=== PATIENT | female | born 1955 | race Caucasian/White ===

== ENCOUNTER → 2017-08-13 | Outpatient (REF) | payer MEDICARE ==
[~2017-08-13] MED LIST: ACID1TAB2 PO; ALBU2.5V36 INH; BENZ100C4 PO; BUDE10.2 INH; DABI150C3 PO; FOLI-68 PO; GUAI-645 PO; IBUP200C71 PO; IPRA3AMP21 NEB; LOR5/325 PO; METH4TAB66 PO; NIC10R INH; PRAM0.1221 PO; PRAM0.1225 PO; PRED20TA6 PO; SUCR1TAB51 PO; THIA100T58 PO; TRAM-420 PO; [UNRECOGNIZED DRUG - REMARK]; duoneb INH
[2017-08-13 11:21] LABS: PLATELET COUNT, AUTOMATED 263 K/uL (150-450)
== END ==
LOC: ZZSENDIN 11:03
PROVIDERS: ATTEND Family Medicine
DX: R63.4 Abnormal weight loss (principal)
CPT/HCPCS: 85025; 85651

== ENCOUNTER 2017-09-12 00:24 | Outpatient (RCR) | payer MEDICARE ==
--- NOTE | 2017-09-13 08:59 | RADIOLOGY IMAGING REPORT ---
FACILITY: [facility] - [place] PATIENT NAME: Mary Perez : 1955 MR: [id number] V: [id number] EXAM DATE: ORDERING PHYSICIAN: OLRI GARCIA TECHNOLOGIST: Location: [facility] [place] Patient: Mary Perez : 1955 Visit/Account:[id number] Date of Sevice: 09/12/2017 THYROID IMAGE/UPTAKE MULTIPLE HISTORY: Thyrotoxicosis TECHNIQUE: 386 microcuries I-123 were administered orally. Radioiodine uptake values were calculated at 24 hours following tracer administration. Gamma camera images were obtained of the neck in variou s orientations. COMPARISON: None FINDINGS: Thyroid radioiodine uptake at 24 hours is 19.2% (normal range 15-40%) Thyroid radioiodine uptake at six hours is 8.9% (normal range 5-15%) Size and shape: Normal. Homogeneity: Normal. Nodules: None evident. IMPRESSION: Unremarkable nuclear medicine thyroid uptake and scan 24 hour thyroid uptake is 19.2% Six hour thyroid uptake is 8.9% Report Dictated By: Lucille Partida MD at 09/13/2017 8:51 AM Report E-Signed By: Lucille Partida MD at 09/13/2017 8:54 AM WSN:[email or web address]
== END 2017-09-12 18:00 | disposition home or self-care (01) ==
LOC: NUC 00:24 → EDSTATUS 13:58 → NUC 18:00
PROVIDERS: ATTEND Family Medicine
DX: E05.90 Thyrotoxicosis, unspecified without thyrotoxic crisis or storm (principal)
CPT/HCPCS: 78014; A9516

== ENCOUNTER → 2018-02-05 | Outpatient (CLI) | payer MEDICARE ==
[~2018-02-05] MED LIST changes: +IBUP-136 PO; -IBUP200C71 PO; +IPRA3AMP10 NEB; -IPRA3AMP21 NEB; +THIA100T20 PO; -THIA100T58 PO
== END ==
LOC: LAB 09:01
PROVIDERS: ATTEND Family Medicine
DX: R19.7 Diarrhea, unspecified (principal)
CPT/HCPCS: 83993; 87177; 87324; 87449

== ENCOUNTER → 2018-03-14 | Outpatient (CLI) | payer MEDICARE ==
--- NOTE | 2018-03-14 11:17 | RADIOLOGY IMAGING REPORT ---
FACILITY: [facility] - [place] PATIENT NAME: Mary Perez : 1955 MR: [id number] V: [id number] EXAM DATE: ORDERING PHYSICIAN: LORI GARCIA TECHNOLOGIST: Location: [facility] [place] Patient: Mary Perez : 1955 Visit/Account:[id number] Date of Sevice: 03/14/2018 Exam type: CHEST PA AND LAT History: Weight loss, COPD, smoker Comparison: August 08, 2016 and August 02, 2016 Findings: There is hyperexpansion of the lung sun. There is no evidence of acute-appearing pulmonary consol idation pleural effusions or overt pulmonary edema. Cardiac silhouette is normal in size. The centr al pulmonary arteries appear somewhat prominent although similar to the prior study. There are spond ylotic changes of the thoracic spine IMPRESSION: 1. There is hyperexpansion of the lung sun Central pulmonary arteries appear somewhat prominent although similar to the prior study. This can b e seen with pulmonary arterial hypertension Report Dictated By: Lucille Partida MD at 03/14/2018 11:07 AM Report E-Signed By: Lucille Partida MD at 03/14/2018 11:14 AM WSN:[email or web address]
== END ==
LOC: RAD 10:08
PROVIDERS: ATTEND Family Medicine
DX: R63.4 Abnormal weight loss (principal); I27.0 Primary pulmonary hypertension
CPT/HCPCS: 71046

== ENCOUNTER 2018-03-23 16:29 | Emergency (ER) | payer MEDICARE ==
[~2018-03-23 16:29] MED LIST changes: -OMEP40CA48 PO; -SUCR1TAB85 PO
[2018-03-23] MEDS ORDERED: NS(*) 0.9% 1000 ML BAG 1,000 ML IV ONE (16:46)
[2018-03-23 16:55] LABS: PLATELET COUNT, AUTOMATED 241 K/uL (150-450)
--- NOTE | 2018-03-23 17:10 | ER Report ---
History and Physical Time Seen By MD: 16:38 Hx. of Stated Complaint: PT WAS AT THE BAR DRINKING. REPORTS GOING TO THE BATHROOM, WHEN SHE CAME OUT SHE STARTED SEEING BLACK SPOTS, COULDNT SEE HER CHAIR, AND STARTED HAVING SEVERE ABDOMINAL CRAMPS HPI/ROS CHIEF COMPLAINT: Abdominal pain, cramping, near syncopal episode HISTORY OF PRESENT ILLNESS: 62-year-old female patient presents to emergency room with complaint of abdominal pain, cramping and near syncopal episode. Patient states that she was at the bar drinking this afternoon. She states that she's had 4 beers today. She states that she is able to tolerate up to 12 beers at a time. She states that she got to the bathroom, as whenever she has anything to drink, whether it is alcohol or water, that she will have diarrhea. She states that she was returning from the bathroom and she felt like she was having spots in her vision. She states that when she got to her barstool she was able to see 3 of them. She states that she felt like she is going to pass out and so she laid down. She states that she was having problems so EMS was contacted. She states she has had a significant amount of weight loss in the past year. She states that is not been intentional. She states she does have a history of COPD. Patient states she does smoke a half to a full pack of cigarettes a day. REVIEW OF SYSTEMS: Respiratory: No cough, no dyspnea. Cardiovascular: No chest pain, no palpitations. Gastrointestinal: As noted above Musculoskeletal: No back pain. Allergies: Coded Allergies: codeine (Verified Allergy, Mild, Itchy, 03/28/17) niacin (Verified Allergy, Mild, rash, itching, 03/28/17) tetracycline (Verified Allergy, Mild, yeast infection, 03/28/17) Home Meds Active Scripts Sucralfate (CARAFATE) 1 Gm Tablet, 1 GM PO QID, #60 TAB Take before meals and at bedtime. Crush the tablet and mix with water before taking. Prov:FREDI GARRETT 03/23/18 Omeprazole (OMEPRAZOLE) 40 Mg Capsule.dr, 40 MG PO QDAY, #30 CAP Prov:FREDI GARRETT 03/23/18 Sucralfate (SUCRALFATE) 1 Gm Tablet, 1 GM PO ACHS1 for 7 Days, TAB Prov:LUISA BAKER MD 08/08/16 Ipratropium/Albuterol Sulfate (IPRAT-ALBUT 0.5-3(2.5) MG/3 ML) 3 Ml Ampul.neb, 3 ML NEB QIDR for 30 Days, VIAL Prov:LUISA BAKER MD 08/08/16 Reported Medications Nicotine (NICOTROL) 10 Mg/Inh Ctr, 10 MG INH PRN PRN for NICOTINE REPLACEMENT 08/11/16 Budesonide/Formoterol Fumarate (SYMBICORT 160-4.5 MCG INHALER) 10.2 Gm Inh, 6 GM INH BID, INH 08/11/16 Pramipexole Di-Hcl (MIRAPEX) 0.125 Mg Tablet, 0.125 MG PO QHS 08/11/16 Acidoph/L.bulg/Bif.b/S.thermop (BACID CAPLET) 1 Each Tablet, 1 EACH PO BIDBS 08/11/16 Budesonide/Formoterol Fumarate (SYMBICORT 160-4.5 MCG INHALER) 10.2 Gm Inh, 10.2 GM INH unknown, INH 10/21/14 Past Medical/Surgical History Patient has a past medical history of sleep apnea, asthma, COPD, reflux, restless leg, arthritis, jaw fracture, clavicle fracture, frequent strep throat, hemophilia, alcohol use, suicide attempt. Patient has a surgical history of jaw surgery, fatty tumor removed. Patient has a family medical history of cancer. Reviewed Nurses Notes: Yes Hx Smoking: Yes Smoking Status: Current: Every Day Smoker Exposure to Second Hand Smoke?: No Hx Substance Use Disorder: No Hx Alcohol Use: Yes Constitutional Vital Sign - Last 24 Hours 03/23/18 03/23/18 03/23/18 03/23/18 16:31 17:10 18:00 18:30 Temp 97.3 Pulse 66 62 Resp 16 B/P (MAP) 131/66 66/54 (58) 100/68 (79) Pulse Ox 91 99 Physical Exam General Appearance: The patient is alert, has no immediate need for airway protection and no current signs of toxicity. Respiratory: Chest is non tender, lungs are clear to auscultation. Cardiac: regular rate and rhythm Gastrointestinal: Abdomen is soft and tender in bilateral lower quadrants, no masses, bowel sounds normal. Musculoskeletal: Neck: Neck is supple and non tender. Extremities have full range of motion and are non tender. Skin: No rashes or lesions. DIFFERENTIAL DIAGNOSIS: After history and physical exam differential diagnosis was considered for dehydration, diarrhea, colon cancer, COPD, alcohol intoxication. Medical Decision Making Data Points Result Diagram: 03/23/18 1625 03/23/18 1625 Laboratory Hematology Test 03/23/18 16:05 03/23/18 16:25 03/23/18 17:05 Serum Alcohol 224 mg/dl Red Blood Count 4.31 M/uL (4.17-5.56) Mean Corpuscular Volume 95.2 fL (80.0-96.0) Mean Corpuscular Hemoglobin 31.8 pg (26.0-33.0) Mean Corpuscular Hemoglobin Concent 33.4 g/dL (32.0-36.0) Red Cell Distribution Width 13.0 % (11.5-14.5) Mean Platelet Volume 7.7 fL (7.2-11.1) Neutrophils (%) (Auto) 51.2 % (39.4-72.5) Lymphocytes (%) (Auto) 37.9 % (17.6-49.6) Monocytes (%) (Auto) 7.8 % (4.1-12.4) Eosinophils (%) (Auto) 1.4 % (0.4-6.7) Basophils (%) (Auto) 1.7 % (0.3-1.4) Nucleated RBC Relative Count (auto) 0.0 /100WBC Neutrophils # (Auto) 4.1 K/uL (2.0-7.4) Lymphocytes # (Auto) 3.0 K/uL (1.3-3.6) Monocytes # (Auto) 0.6 K/uL (0.3-1.0) Eosinophils # (Auto) 0.1 K/uL (0.0-0.5) Basophils # (Auto) 0.1 K/uL (0.0-0.1) Nucleated RBC Absolute Count (auto) 0.00 K/uL Sodium Level 134 mmol/L (137-145) Potassium Level 4.1 mmol/L (3.5-5.0) Chloride Level 97 mmol/L (98-107) Carbon Dioxide Level 25 mmol/L (22-31) Blood Urea Nitrogen 11 mg/dl (7-18) Creatinine 0.70 mg/dl (0.52-1.04) Glomerular Filtration Rate Calc > 60.0 Random Glucose 108 mg/dl (75-110) Calcium Level 9.0 mg/dl (8.4-10.2) Total Bilirubin 0.2 mg/dl (0.2-1.3) Aspartate Amino Transf (AST/SGOT) 33 U/L (0-35) Alanine Aminotransferase (ALT/SGPT) 22 U/L (0-56) Alkaline Phosphatase 62 U/L (0-126) Troponin I < 0.012 ng/ml Total Protein 7.1 g/dl (6.3-8.2) Albumin 4.2 g/dl (3.5-5.0) Amylase Level 56 U/L (0-110) Lipase 129 U/L (23-300) Urine Color Colorless Urine Clarity Clear Urine pH 6.0 pH (4.8-9.5) Urine Specific [place] 1.002 Urine Protein Negative mg/dL (NEGATIVE) Urine Glucose (UA) Negative mg/dL (NEGATIVE) Urine Ketones Negative mg/dL (NEGATIVE) Urine Blood Negative (NEGATIVE) Urine Nitrite Negative (NEGATIVE) Urine Bilirubin Negative (NEGATIVE) Urine Urobilinogen Negative mg/dL (0.2-1.9) Urine Leukocyte Esterase Negative (NEGATIVE) Urine RBC None /HPF (0-2/HPF) Urine WBC <1 /HPF (0-5/HPF) Urine Squamous Epithelial Cells None /LPF (</=FEW) Urine Bacteria Negative /HPF (NONE-FEW) Urine Mucus None /HPF (NONE-FEW) Stool Occult Blood (IFOB) Positive (NEGATIVE) Stool Leukocytes, Qualitative Negative Chemistry Test 03/23/18 16:05 03/23/18 16:25 03/23/18 17:05 Serum Alcohol 224 mg/dl White Blood Count 8.0 k/uL (4.5-11.0) Red Blood Count 4.31 M/uL (4.17-5.56) Hemoglobin 13.7 g/dL (12.0-16.0) Hematocrit 41.0 % (34.0-47.0) Mean Corpuscular Volume 95.2 fL (80.0-96.0) Mean Corpuscular Hemoglobin 31.8 pg (26.0-33.0) Mean Corpuscular Hemoglobin Concent 33.4 g/dL (32.0-36.0) Red Cell Distribution Width 13.0 % (11.5-14.5) Platelet Count 241 K/uL (150-450) Mean Platelet Volume 7.7 fL (7.2-11.1) Neutrophils (%) (Auto) 51.2 % (39.4-72.5) Lymphocytes (%) (Auto) 37.9 % (17.6-49.6) Monocytes (%) (Auto) 7.8 % (4.1-12.4) Eosinophils (%) (Auto) 1.4 % (0.4-6.7) Basophils (%) (Auto) 1.7 % (0.3-1.4) Nucleated RBC Relative Count (auto) 0.0 /100WBC Neutrophils # (Auto) 4.1 K/uL (2.0-7.4) Lymphocytes # (Auto) 3.0 K/uL (1.3-3.6) Monocytes # (Auto) 0.6 K/uL (0.3-1.0) Eosinophils # (Auto) 0.1 K/uL (0.0-0.5) Basophils # (Auto) 0.1 K/uL (0.0-0.1) Nucleated RBC Absolute Count (auto) 0.00 K/uL Glomerular Filtration Rate Calc > 60.0 Calcium Level 9.0 mg/dl (8.4-10.2) Total Bilirubin 0.2 mg/dl (0.2-1.3) Aspartate Amino Transf (AST/SGOT) 33 U/L (0-35) Alanine Aminotransferase (ALT/SGPT) 22 U/L (0-56) Alkaline Phosphatase 62 U/L (0-126) Troponin I < 0.012 ng/ml Total Protein 7.1 g/dl (6.3-8.2) Albumin 4.2 g/dl (3.5-5.0) Amylase Level 56 U/L (0-110) Lipase 129 U/L (23-300) Urine Color Colorless Urine Clarity Clear Urine pH 6.0 pH (4.8-9.5) Urine Specific [place] 1.002 Urine Protein Negative mg/dL (NEGATIVE) Urine Glucose (UA) Negative mg/dL (NEGATIVE) Urine Ketones Negative mg/dL (NEGATIVE) Urine Blood Negative (NEGATIVE) Urine Nitrite Negative (NEGATIVE) Urine Bilirubin Negative (NEGATIVE) Urine Urobilinogen Negative mg/dL (0.2-1.9) Urine Leukocyte Esterase Negative (NEGATIVE) Urine RBC None /HPF (0-2/HPF) Urine WBC <1 /HPF (0-5/HPF) Urine Squamous Epithelial Cells None /LPF (</=FEW) Urine Bacteria Negative /HPF (NONE-FEW) Urine Mucus None /HPF (NONE-FEW) Stool Occult Blood (IFOB) Positive (NEGATIVE) Stool Leukocytes, Qualitative Negative Toxicology Test 03/23/18 16:05 Serum Alcohol 224 mg/dl Urinalysis Test 03/23/18 17:05 Urine Color Colorless Urine Clarity Clear Urine pH 6.0 pH (4.8-9.5) Urine Specific [place] 1.002 Urine Protein Negative mg/dL (NEGATIVE) Urine Glucose (UA) Negative mg/dL (NEGATIVE) Urine Ketones Negative mg/dL (NEGATIVE) Urine Blood Negative (NEGATIVE) Urine Nitrite Negative (NEGATIVE) Urine Bilirubin Negative (NEGATIVE) Urine Urobilinogen Negative mg/dL (0.2-1.9) Urine Leukocyte Esterase Negative (NEGATIVE) Urine RBC None /HPF (0-2/HPF) Urine WBC <1 /HPF (0-5/HPF) Urine Squamous Epithelial Cells None /LPF (</=FEW) Urine Bacteria Negative /HPF (NONE-FEW) Urine Mucus None /HPF (NONE-FEW) Microbiology Microbiology Date/Time Source Procedure Growth Status 03/23/18 17:05 Stool Gram Stain - Final Resulted 03/23/18 17:05 Stool Stool Culture Pending Resulted EKG/Imaging EKG Interpretation 12 lead EKG: Rhythm: normal sinus rhythm with a ventricular rate of 70 bpm [place]: normal QRS: normal ST segments: normal Imaging COMPUTED TOMOGRAPHY OF THE Abdomen and Pelvis with CONTRAST INDICATION: Abdominal pain. TECHNIQUE: Contiguous axial 3.[address] images were obtained through the abdomen and pelvis after 75 mL Isovue-370. Coronal and sagittal reformatted images were submitted. COMPARISON: None relevant.. FINDINGS: Lung bases: Moderate centrilobular emphysema. Coronary atherosclerosis is not well-imaged. There is also calcification in the region of the aortic valve. Liver and hepatic vasculature: No focal lesion. Well-opacified hepatic and portal veins. No ascites. Gallbladder and bile ducts: Normal Spleen: Normal Pancreas: Normal Adrenals: Normal Kidneys, ureters and bladder: Symmetric enhancement. No hydronephrosis or obstruction. Normal-appearing bladder. Retroperitoneum and aorta: Moderate aortic atherosclerosis. No aneurysm. GI tract, mesentery and peritoneum: Normal appendix. No bowel obstruction. No free fluid or free air. Several small bowel loops are fluid-filled, but not frankly distended. There are no findings of diverticulitis. Wall thickening of the rectosigmoid colon is possible, but the colon is incompletely distended. Uterus and adnexa: Unremarkable uterus. Bones and soft tissues: No acute osseous abnormality. Diffusely decreased bone density in the lumbar spine. IMPRESSION: 1. No definite evidence of acute intra-abdominal abnormality. 2. Several small bowel loops are fluid-filled, but none are frankly distended. There is no obstruction. The finding may be incidental or related to enteritis. 3. Equivocal wall thickening involving the sigmoid colon with the appearance favored to be the result of decompression/incomplete distention versus colitis. One of the following dose optimization techniques was utilized in the performance of this exam: Automated exposure control; adjustment of the mA and/or kV according to the patient's size; or use of an iterative reconstruction technique. Specific details can be referenced in the facility's radiology CT exam operational policy. Report Dictated By: Peter Ivy MD at 03/23/2018 6:01 PM Report E-Signed By: Peter Ivy MD at 03/23/2018 6:08 PM INDICATION: syncopal episode. DATE: 03/23/2018 5:59 PM. TECHNIQUE: CHEST PA AND LAT COMPARISON: Radiographs March 14, 2018. FINDINGS: Heart size is normal. No effusion, consolidation, or pneumothorax. The lungs are hyperinflated. The AP diameter of the chest is increased. The interstitium is diffusely prominent. Bilateral nipple shadows are noted. Bone density appears diffusely decreased in the thoracic spine. IMPRESSION: Hyperinflation, hyperlucency, and AP chest diameter suggests background emphysema. Prominence of the interstitium is probably related to bronchial wall thickening. No focal pneumonia. Report Dictated By: Peter Ivy MD at 03/23/2018 5:59 PM Report E-Signed By: Peter Ivy MD at 03/23/2018 6:00 PM ED Course/Re-evaluation ED Course Patient was admitted exam room, history and physical were obtained. Differential diagnoses were considered. On examination lungs are clear, heart is regular, abdomen soft nontender. Patient states she did have some pain in the right lower quadrant. A CBC, CMP, urinalysis, EKG, troponin, chest x-ray, CT scan of the abdomen and pelvis were done. The lab results were unremarkable. Chest x-ray showed emphysema. The CT scan of abdomen and pelvis did show some dilated small bowels consistent with an enteritis as well as some thickening of the colon coronado consistent with colitis. With patient likely has some viral infection of the intestines. I believe that she had a spasm of the intestines after she got to the bathroom which caused a vasovagal response. Thus far she had her near syncopal episode. Patient was positive for blood in her stool, I could be related to the infection or could be related to a bleed which is causing the increased diarrhea. We will go ahead and start her on omeprazole 40 mg daily as well as Carafate and have her follow-up with Dr. George. I discussed this with the patient who verbalized understanding and agreement with plan. Decision to Disposition Date: Mar 23, 2018 Decision to Disposition Time: 18:16 Depart Departure Latest Vital Signs Vital Signs Date Time Temp Pulse Resp B/P (MAP) Pulse Ox O2 Delivery O2 Flow Rate FiO2 03/23/18 18:30 62 99 03/23/18 18:00 100/68 (79) 03/23/18 16:31 97.3 16 Impression: Primary Impression: Enteritis Additional Impression: Gastrointestinal bleed Condition: Improved Disposition: HOME OR SELF-CARE Referrals: LORI GARCIA MD (PCP) LORI GEORGE MD New Scripts Sucralfate (CARAFATE) 1 Gm Tablet 1 GM PO QID, #60 TAB Take before meals and at bedtime. Crush the tablet and mix with water before taking. Prov: FREDI GARRETT 03/23/18 Omeprazole (OMEPRAZOLE) 40 Mg Capsule. 40 MG PO QDAY, #30 CAP Prov: FREDI GARRETT 03/23/18 Patient Instructions: Enteritis (ED) Additional Instructions: Increase fluid intake. Clear liquid diet for the next 24-48 hours. After that you may advance diet as tolerated starting with complex carbohydrates; rice, bread or pasta. Follow up with your primary care provider in the next week. Return to the ER if condition worsens. Follow up with Dr. George for a colonoscopy, to find out why you have blood in your stool. Problem Qualifiers Additional Impression: Gastrointestinal bleed GI bleed type/associated pathology: unspecified gastrointestinal hemorrhage type Qualified Codes: K92.2 - Gastrointestinal hemorrhage, unspecified FREDI GARRETT PROCESS IMPROVEMENT ENGINEER Mar 23, 2018 17:10
[2018-03-23] MEDS ORDERED: IOPAMIDOL 76% 100 ML INFUS BTL 100 ML ONE (17:12)
--- NOTE | 2018-03-23 17:31 | EKG ---
FACILITY: [facility] PATIENT NAME: ESSIE LICONA : [id number] MR: [id number] V: [id number] EXAM DATE: ORDERING PHYSICIAN: FREDI GARRETT TECHNOLOGIST: HILARIO Test Reason : IMPAIRED VISION Blood Pressure : / mmHG Vent. Rate : 070 BPM Atrial Rate : 070 BPM P-R Int : 134 ms QRS Dur : 082 ms QT Int : 428 ms P-R-T Axes : 085 081 074 degrees QTc Int : 462 ms Normal sinus rhythm Normal ECG When compared with ECG of 08-AUG-2016 05:54, Borderline criteria for Anterior infarct are no longer present Confirmed by CONRAD TENA ([id number]) on 03/23/2018 10:08:58 PM Referred By: FREDI Confirmed By:CONRAD TENA
[2018-03-23 18:00] VITALS: BP 100/68
--- NOTE | 2018-03-23 18:03 | RADIOLOGY IMAGING REPORT ---
FACILITY: [facility] - [place] PATIENT NAME: Mary Perez : 1955 MR: [id number] V: [id number] EXAM DATE: ORDERING PHYSICIAN: FREDI GARRETT TECHNOLOGIST: Location: [facility] [place] Patient: Mary Perez : 1955 Visit/Account:[id number] Date of Sevice: 03/23/2018 INDICATION: syncopal episode. DATE: 03/23/2018 5:59 PM. TECHNIQUE: CHEST PA AND LAT COMPARISON: Radiographs March 14, 2018. FINDINGS: Heart size is normal. No effusion, consolidation, or pneumothorax. The lungs are hyperinf lated. The AP diameter of the chest is increased. The interstitium is diffusely prominent. Bilater al nipple shadows are noted. Bone density appears diffusely decreased in the thoracic spine. IMPRESSION: Hyperinflation, hyperlucency, and AP chest diameter suggests background emphysema. Prominence of the interstitium is probably related to bronchial wall thickening. No focal pneumonia. Report Dictated By: Peter Ivy MD at 03/23/2018 5:59 PM Report E-Signed By: Peter Ivy MD at 03/23/2018 6:00 PM WSN:[email or web address]
--- NOTE | 2018-03-23 18:13 | RADIOLOGY IMAGING REPORT ---
FACILITY: [facility] PATIENT NAME: Mary Perez : 1955 MR: [id number] V: [id number] EXAM DATE: ORDERING PHYSICIAN: FREDI GARRETT TECHNOLOGIST: Location: [facility] Patient: Mary Perez : 1955 Visit/Account:[id number] Date of Sevice: 03/23/2018 COMPUTED TOMOGRAPHY OF THE Abdomen and Pelvis with CONTRAST INDICATION: Abdominal pain. TECHNIQUE: Contiguous axial 3.[address] images were obtained through the abdomen and pelvis after 75 m L Isovue-370. Coronal and sagittal reformatted images were submitted. COMPARISON: None relevant.. FINDINGS: Lung bases: Moderate centrilobular emphysema. Coronary atherosclerosis is not well-imaged. There is also calcification in the region of the aortic valve. Liver and hepatic vasculature: No focal lesion. Well-opacified hepatic and portal veins. No ascite s. Gallbladder and bile ducts: Normal Spleen: Normal Pancreas: Normal Adrenals: Normal Kidneys, ureters and bladder: Symmetric enhancement. No hydronephrosis or obstruction. Normal-appe aring bladder. Retroperitoneum and aorta: Moderate aortic atherosclerosis. No aneurysm. GI tract, mesentery and peritoneum: Normal appendix. No bowel obstruction. No free fluid or free ai r. Several small bowel loops are fluid-filled, but not frankly distended. There are no findings of diverticulitis. Wall thickening of the rectosigmoid colon is possible, but the colon is incompletely distended. Uterus and adnexa: Unremarkable uterus. Bones and soft tissues: No acute osseous abnormality. Diffusely decreased bone density in the lumbar spine. IMPRESSION: 1. No definite evidence of acute intra-abdominal abnormality. 2. Several small bowel loops are fluid-filled, but none are frankly distended. There is no obstruct ion. The finding may be incidental or related to enteritis. 3. Equivocal wall thickening involving the sigmoid colon with the appearance favored to be the resul t of decompression/incomplete distention versus colitis. One of the following dose optimization techniques was utilized in the performance of this exam: Autom ated exposure control; adjustment of the mA and/or kV according to the patient's size; or use of an i terative reconstruction technique. Specific details can be referenced in the facility's radiology C T exam operational policy. Report Dictated By: Peter Ivy MD at 03/23/2018 6:01 PM Report E-Signed By: Peter Ivy MD at 03/23/2018 6:08 PM WSN:[email or web address]
[2018-03-23] MEDS ORDERED: OMEP40CA48 PO (18:19)
[2018-03-23] MEDS ORDERED: SUCR1TAB85 PO (18:19)
[2018-03-23] MEDS ORDERED: SUCRALFATE 1 GM TAB PO ONE (18:20)
[2018-03-23] MEDS ORDERED: PANTOPRAZOLE SOD 40 MG TABEC PO ONE (18:20)
== END 2018-03-23 18:39 | disposition home or self-care (01) ==
LOC: ER 16:38
DX: K52.9 Noninfective gastroenteritis and colitis, unspecified (principal); K92.2 Gastrointestinal hemorrhage, unspecified; J43.9 Emphysema, unspecified; F17.210 Nicotine dependence, cigarettes, uncomplicated
CPT/HCPCS: 71046; 74177; 81001; 82150; 82274; 83630; 83690; 84484; 85025; 87045; 87177; 87205; 93005; 96360; 96361; 99285; A9270; G0480; J7030; Q9967; 80320; 82040; 82247; 82310; 82374; 82435; 82565; 82947; 84075; 84132; 84155; 84295; 84450; 84460; 84520

== ENCOUNTER → 2018-03-23 | Outpatient (CLI) | payer MEDICARE ==
[~2018-03-23] MED LIST changes: +OMEP40CA48 PO; +SUCR1TAB85 PO
== END ==
LOC: AMB 16:08
PROVIDERS: ATTEND Nurse Practitioner
DX: R42 Dizziness and giddiness (principal); R10.84 Generalized abdominal pain; R19.7 Diarrhea, unspecified
CPT/HCPCS: A0425; A0427

== ENCOUNTER 2018-05-20 00:53 | Day surgery (SDC) | payer MEDICARE ==
[~2018-05-20] VITALS: Ht 170.2 cm; Wt 54.9 kg
[~2018-05-20 00:53] MED LIST changes: +DICY20TA70 PO; +LIDOCAINE/SOD BICARB 8.4% SYR ID ONE; +NORMOSOL R SOLN(*) 1000 ML BAG 1,000 ML IV PRN; +OMEP40CA48 PO; +OXYGENHOME INH; +SUCR1TAB85 PO
[2018-05-20 07:51] VITALS: BP 127/81
[2018-05-20] MEDS ORDERED: LIDOCAINE/SOD BICARB 8.4% SYR ID ONE (08:10)
[2018-05-20] MEDS ORDERED: NORMOSOL R SOLN(*) 1000 ML BAG 1,000 ML IV PRN (08:10)
[2018-05-20] MEDS ORDERED: KETAMINE HCL 500 MG/10 ML VIAL ONE (09:32)
[2018-05-20 09:50] VITALS: BP 114/63
--- NOTE | 2018-05-20 09:50 | NUR ---
5222 SBAR REPORT WAS RECEIVED FROM DR. MULLER AND TIFFANIE RN. PATIENT IS DROWSY BUT AWAKE. SHE IS ON 3.5 LITERS OXYMASK. PATIENT HAS EXPIRATORY WHEEZES AND WAS ENCOURAGE TO COUGH AND DEEP BREATHE. SHE HAS A PRODUCTIVE COUGH. BOWEL SOUNDS ARE HYPERACTIVE. SHE STATES SHE SHE 3/10 ABDOMINAL PAIN. IV IS INFUSING. SEE ADMISSION ASSESSMENT. 1794 PATIENT WAS MOVED TO A SEMI FOWLERS POSITION
[2018-05-20 10:00] VITALS: BP 115/77
--- NOTE | 2018-05-20 10:02 | Short(Outpt) Discharge Summary ---
Discharge Summary Reason for Hosp/Final Diag: (1) Gastrointestinal bleed Status: Acute Hospital Course & Plan: 62 yo f presented for egd/colonoscopy. wt loss, diarrhea. she tolerated the procedure well and there were no complications. path pending. she will be discharged home when criteria met. Discharge Instructions Home Meds Active Scripts Ipratropium/Albuterol Sulfate (IPRAT-ALBUT 0.5-3(2.5) MG/3 ML) 3 Ml Ampul.neb, 3 ML NEB QIDR for 30 Days, VIAL Prov:LUISA BAKER MD 08/08/16 Reported Medications Oxygen (OXYGEN) Inha, 3.5 L INH Q24H, L 05/06/18 Dicyclomine Hcl (DICYCLOMINE HCL) 20 Mg Tablet, 20 MG PO TID 04/11/18 Pramipexole Di-Hcl (MIRAPEX) 0.125 Mg Tablet, 0.125 MG PO QHS 08/11/16 Budesonide/Formoterol Fumarate (SYMBICORT 160-4.5 MCG INHALER) 10.2 Gm Inh, 10.2 GM INH BID, INH 10/21/14 Diet: Regular Activity: As Tolerated Special Instructions: will call you in 7-10 days with biopsy results. ANA LOPEZ May 20, 2018 10:02
[2018-05-20 10:19] VITALS: BP 128/84
[2018-05-20 10:21] VITALS: BP 125/86
--- NOTE | 2018-05-20 10:45 | NUR ---
1000 PATIENT BEGAN DRINKING WATER AND EATING JELLO. SHE IS TOLERATING THIS WELL 1010 PATIENT BEGAN DRINKING APPLE JUICE 1019 BEGAN DOING ORTHOSTATICS WITH PATIENT. DENIES ANY DIZZINESS OR LIGHTHEADEDNESS 1021 PATIENT BEGAN STANDING AND WAS STABLE ON HER FEET 1023 IV WAS SALINE LOCKED 1024 PATIENT BEGAN GETTING DRESSED 1035 WENT OVER DC INSTRUCTIONS WITH PATIENT AND FRIEND. THEY VERBALIZED UNDERSTANDING 1036 PATIENT USED THE BATHROOM 1040 IV WAS DC'D WITH CATH INTACT 1045 PATIENT WAS TAKEN OUT VIA WHEELCHAIR. LUNGS ARE DIMINISHED THROUGHOUT. EXPIRATORY WHEEZES ARE NO LONGER AUDIBLE. PATIENT CONTINUES TO COUGH AND DEEP BREATHE. SHE HAS A PRODUCTIVE COUGH. BOWEL SOUNDS ARE HYPERACTIVE. SHE STATES HER PAIN IS 0.5/10 WITH SOME ABDOMINAL GAS PAIN. SHE REMAINS ON 3.5 LITERS PORTABLE O2 ON DISCHARGE. SEE DISCHARGE ASSESSMENT.
== END 2018-05-20 10:45 | disposition home or self-care (01) ==
LOC: OR 00:53
PROVIDERS: ATTEND Surgery
DX: K44.9 Diaphragmatic hernia without obstruction or gangrene (principal); I85.00 Esophageal varices without bleeding; K29.70 Gastritis, unspecified, without bleeding; D12.0 Benign neoplasm of cecum; D12.4 Benign neoplasm of descending colon; D12.3 Benign neoplasm of transverse colon; K57.30 Diverticulosis of large intestine without perforation or abscess without bleeding; J44.9 Chronic obstructive pulmonary disease, unspecified; K21.9 Gastro-esophageal reflux disease without esophagitis
CPT/HCPCS: 00813; 43239; 45385; 87077; 88305; 88344; J3490

== ENCOUNTER 2018-05-25 19:51 | Emergency (ER) | payer MEDICARE ==
[2018-05-25] MEDS ORDERED: THIAMINE HCL(*) 200 MG/2 ML IN 100 MG, FOLIC ACID(*) 50 MG/10 ML INJ 1 MG, MULTIVITAMIN... IV ONE (19:52)
--- NOTE | 2018-05-25 20:02 | ER Report ---
History and Physical Time Seen By MD: 19:52 HPI/ROS CHIEF COMPLAINT: Lower abdominal cramps, alcohol ingestion HISTORY OF PRESENT ILLNESS: Exceeds 2-year-old female proximally 5 days out from a colonoscopy/EGD. Patient went out to the bar this evening at 5 PM and had several alcoholic beverages. She began to develop severe stomach cramping. And called 911. She's brought in by EMS complaining of lower abdominal pain. She has slurred speech consistent with alcohol intoxication. She admits 6-7 beers were consumed. She notes no diarrhea, nausea or vomiting. Patient was undergoing evaluation for chronic diarrhea and a 40 pound weight loss. REVIEW OF SYSTEMS: Respiratory: No cough, no dyspnea. Cardiovascular: No chest pain, no palpitations. Gastrointestinal: No vomiting, no abdominal pain. Musculoskeletal: No back pain. Allergies: Coded Allergies: codeine (Verified Allergy, Mild, Itchy, 05/25/18) niacin (Verified Allergy, Mild, rash, itching, 05/25/18) tetracycline (Verified Allergy, Mild, yeast infection, 05/25/18) Home Meds Active Scripts Dicyclomine Hcl (DICYCLOMINE HCL) 20 Mg Tablet, 20 MG PO QID PRN for abdominal cramps, #30 Prov:ADRIEN DAVID DO 05/25/18 Ipratropium/Albuterol Sulfate (IPRAT-ALBUT 0.5-3(2.5) MG/3 ML) 3 Ml Ampul.neb, 3 ML NEB QIDR for 30 Days, VIAL Prov:LUISA BAKER MD 08/08/16 Reported Medications Oxygen (OXYGEN) Inha, 3.5 L INH Q24H, L 05/06/18 Dicyclomine Hcl (DICYCLOMINE HCL) 20 Mg Tablet, 20 MG PO TID 04/11/18 Pramipexole Di-Hcl (MIRAPEX) 0.125 Mg Tablet, 0.125 MG PO QHS 08/11/16 Budesonide/Formoterol Fumarate (SYMBICORT 160-4.5 MCG INHALER) 10.2 Gm Inh, 10.2 GM INH BID, INH 10/21/14 Past Medical/Surgical History Past Medical History Respiratory: Reports hx of: COPD (Wears 3LO2) sleep apnea Gastrointestinal: Reports hx of: GERD other GI history (stomach ulcers) Psychiatric: Reports hx of: suicide attempt(s) (15 Apr 2017) Past Surgical History Gastrointestinal: Reports hx of: other GI surgery (colonoscopy 2014) Gynecologic: Reports hx of: tubal ligation Reviewed Nurses Notes: Yes Old Medical Records Reviewed: Yes Hx Smoking: Yes (1 PPDX40+ YEARS ) Smoking Status: Current: Every Day Smoker Exposure to Second Hand Smoke?: No Hx Substance Use Disorder: No Hx Alcohol Use: Yes Constitutional Vital Sign - Last 24 Hours 05/25/18 05/25/18 05/25/18 05/25/18 19:51 19:52 19:57 20:01 Temp 97.8 Pulse ??? 75 Resp 18 B/P (MAP) 133/129 133/129 (130) 102/85 (91) Pulse Ox 94 O2 Delivery Nasal Cannula 05/25/18 05/25/18 05/25/18 05/25/18 20:21 20:30 20:51 21:00 Pulse ??? B/P (MAP) 134/86 (102) 99/57 (71) Pulse Ox 97 92 05/25/18 21:30 B/P (MAP) 106/64 (78) Intake and Output 05/25/18 05/25/18 05/26/18 15:00 23:00 07:00 Intake Total 1015.2 ml Balance 1015.2 ml Physical Exam Vital signs stable, afebrile, pulse ox normal, patient normally on 3 L. O2 saturation stable on 3 L General Appearance: The patient is alert, has no immediate need for airway protection and no current signs of toxicity. Mild distress, skin warm, dry, pink HEENT: Pupils equal and round no injection. Anicteric sclera, TMs normal, oropharynx with mild erythema, heavy odor of EtOH Respiratory: Chest is non tender, lungs are clear to auscultation. Cardiac: regular rate and rhythm Gastrointestinal: Abdomen is soft and mild diffuse tenderness, no rebound or guarding, no masses, bowel sounds normal. Musculoskeletal: Neck: Neck is supple and non tender. No lymphadenopathy, no JVD Extremities have full range of motion and are non tender. No edema, no calf tenderness Skin: No rashes or lesions. DIFFERENTIAL DIAGNOSIS: After history and physical exam differential diagnosis was considered for abdominal pain including but not limited to appendicitis, cholecystitis, gastritis and urinary tract infection. Additionally, alcohol intoxication, gastritis, food poisoning, viral syndrome Medical Decision Making Data Points Result Diagram: 05/25/18195305/25/[id number] Laboratory Hematology Test 05/25/18 19:54 05/25/18 19:58 Red Blood Count 3.97 M/uL (4.17-5.56) Mean Corpuscular Volume 92.1 fL (80.0-96.0) Mean Corpuscular Hemoglobin 31.7 pg (26.0-33.0) Mean Corpuscular Hemoglobin Concent 34.4 g/dL (32.0-36.0) Red Cell Distribution Width 12.9 % (11.5-14.5) Mean Platelet Volume 7.8 fL (7.2-11.1) Neutrophils (%) (Auto) 58.1 % (39.4-72.5) Lymphocytes (%) (Auto) 33.8 % (17.6-49.6) Monocytes (%) (Auto) 5.9 % (4.1-12.4) Eosinophils (%) (Auto) 1.4 % (0.4-6.7) Basophils (%) (Auto) 0.8 % (0.3-1.4) Nucleated RBC Relative Count (auto) 0.0 /100WBC Neutrophils # (Auto) 5.0 K/uL (2.0-7.4) Lymphocytes # (Auto) 2.9 K/uL (1.3-3.6) Monocytes # (Auto) 0.5 K/uL (0.3-1.0) Eosinophils # (Auto) 0.1 K/uL (0.0-0.5) Basophils # (Auto) 0.1 K/uL (0.0-0.1) Nucleated RBC Absolute Count (auto) 0.00 K/uL Prothrombin Time 12.4 seconds (12.0-14.4) Prothromb Time International Ratio 0.93 Activated Partial Thromboplast Time 25 seconds (23-35) Sodium Level 136 mmol/L (137-145) Potassium Level 4.0 mmol/L (3.5-5.0) Chloride Level 106 mmol/L (98-107) Carbon Dioxide Level 20 mmol/L (22-31) Blood Urea Nitrogen 10 mg/dl (7-18) Creatinine 0.50 mg/dl (0.52-1.04) Glomerular Filtration Rate Calc > 60.0 Random Glucose 96 mg/dl (75-110) Lactate 2.0 mmol/L (0.7-2.1) Calcium Level 9.0 mg/dl (8.4-10.2) Total Bilirubin 0.1 mg/dl (0.2-1.3) Aspartate Amino Transf (AST/SGOT) 23 U/L (0-35) Alanine Aminotransferase (ALT/SGPT) 28 U/L (0-56) Alkaline Phosphatase 71 U/L (0-126) Total Protein 7.2 g/dl (6.3-8.2) Albumin 4.6 g/dl (3.5-5.0) Amylase Level 35 U/L (0-110) Lipase 125 U/L (23-300) Serum Alcohol 257 mg/dl Urine Color Straw Urine Clarity Clear Urine pH 5.0 pH (4.8-9.5) Urine Specific [place] 1.004 Urine Protein Negative mg/dL (NEGATIVE) Urine Glucose (UA) Negative mg/dL (NEGATIVE) Urine Ketones Negative mg/dL (NEGATIVE) Urine Blood Negative (NEGATIVE) Urine Nitrite Negative (NEGATIVE) Urine Bilirubin Negative (NEGATIVE) Urine Urobilinogen Negative mg/dL (0.2-1.9) Urine Leukocyte Esterase Negative (NEGATIVE) Urine RBC <1 /HPF (0-2/HPF) Urine WBC <1 /HPF (0-5/HPF) Urine Squamous Epithelial Cells Moderate /LPF (</=FEW) Urine Bacteria Negative /HPF (NONE-FEW) Urine Mucus None /HPF (NONE-FEW) Chemistry Test 05/25/18 19:54 05/25/18 19:58 White Blood Count 8.6 k/uL (4.5-11.0) Red Blood Count 3.97 M/uL (4.17-5.56) Hemoglobin 12.6 g/dL (12.0-16.0) Hematocrit 36.6 % (34.0-47.0) Mean Corpuscular Volume 92.1 fL (80.0-96.0) Mean Corpuscular Hemoglobin 31.7 pg (26.0-33.0) Mean Corpuscular Hemoglobin Concent 34.4 g/dL (32.0-36.0) Red Cell Distribution Width 12.9 % (11.5-14.5) Platelet Count 250 K/uL (150-450) Mean Platelet Volume 7.8 fL (7.2-11.1) Neutrophils (%) (Auto) 58.1 % (39.4-72.5) Lymphocytes (%) (Auto) 33.8 % (17.6-49.6) Monocytes (%) (Auto) 5.9 % (4.1-12.4) Eosinophils (%) (Auto) 1.4 % (0.4-6.7) Basophils (%) (Auto) 0.8 % (0.3-1.4) Nucleated RBC Relative Count (auto) 0.0 /100WBC Neutrophils # (Auto) 5.0 K/uL (2.0-7.4) Lymphocytes # (Auto) 2.9 K/uL (1.3-3.6) Monocytes # (Auto) 0.5 K/uL (0.3-1.0) Eosinophils # (Auto) 0.1 K/uL (0.0-0.5) Basophils # (Auto) 0.1 K/uL (0.0-0.1) Nucleated RBC Absolute Count (auto) 0.00 K/uL Prothrombin Time 12.4 seconds (12.0-14.4) Prothromb Time International Ratio 0.93 Activated Partial Thromboplast Time 25 seconds (23-35) Glomerular Filtration Rate Calc > 60.0 Lactate 2.0 mmol/L (0.7-2.1) Calcium Level 9.0 mg/dl (8.4-10.2) Total Bilirubin 0.1 mg/dl (0.2-1.3) Aspartate Amino Transf (AST/SGOT) 23 U/L (0-35) Alanine Aminotransferase (ALT/SGPT) 28 U/L (0-56) Alkaline Phosphatase 71 U/L (0-126) Total Protein 7.2 g/dl (6.3-8.2) Albumin 4.6 g/dl (3.5-5.0) Amylase Level 35 U/L (0-110) Lipase 125 U/L (23-300) Serum Alcohol 257 mg/dl Urine Color Straw Urine Clarity Clear Urine pH 5.0 pH (4.8-9.5) Urine Specific [place] 1.004 Urine Protein Negative mg/dL (NEGATIVE) Urine Glucose (UA) Negative mg/dL (NEGATIVE) Urine Ketones Negative mg/dL (NEGATIVE) Urine Blood Negative (NEGATIVE) Urine Nitrite Negative (NEGATIVE) Urine Bilirubin Negative (NEGATIVE) Urine Urobilinogen Negative mg/dL (0.2-1.9) Urine Leukocyte Esterase Negative (NEGATIVE) Urine RBC <1 /HPF (0-2/HPF) Urine WBC <1 /HPF (0-5/HPF) Urine Squamous Epithelial Cells Moderate /LPF (</=FEW) Urine Bacteria Negative /HPF (NONE-FEW) Urine Mucus None /HPF (NONE-FEW) Coagulation Test 05/25/18 19:54 Prothrombin Time 12.4 seconds Prothromb Time International Ratio 0.93 Activated Partial Thromboplast Time 25 seconds Toxicology Test 05/25/18 19:54 Serum Alcohol 257 mg/dl Urinalysis Test 05/25/18 19:58 Urine Color Straw Urine Clarity Clear Urine pH 5.0 pH (4.8-9.5) Urine Specific [place] 1.004 Urine Protein Negative mg/dL (NEGATIVE) Urine Glucose (UA) Negative mg/dL (NEGATIVE) Urine Ketones Negative mg/dL (NEGATIVE) Urine Blood Negative (NEGATIVE) Urine Nitrite Negative (NEGATIVE) Urine Bilirubin Negative (NEGATIVE) Urine Urobilinogen Negative mg/dL (0.2-1.9) Urine Leukocyte Esterase Negative (NEGATIVE) Urine RBC <1 /HPF (0-2/HPF) Urine WBC <1 /HPF (0-5/HPF) Urine Squamous Epithelial Cells Moderate /LPF (</=FEW) Urine Bacteria Negative /HPF (NONE-FEW) Urine Mucus None /HPF (NONE-FEW) ED Course/Re-evaluation Clinical Indication for ER IV: Hydration, IV Access ED Course Patient was admitted to an examination room. H&P was done. The differential diagnoses was considered. Patient with abdominal pain after consuming 6 alcoholic beverages. Patient's 5 days out from endoscopy and colonoscopy. Patient was treated with IV banana bag, Zofran, Toradol, and dicyclomine. She is blood alcohol returned at 257. Patient was discharged home and advised to avoid alcohol until she follows up with her primary care physician. Patient was given a prescription for dicyclomine. Decision to Disposition Date: May 25, 2018 Decision to Disposition Time: 20:45 Depart Departure Latest Vital Signs Vital Signs Date Time Temp Pulse Resp B/P (MAP) Pulse Ox O2 Delivery O2 Flow Rate FiO2 05/25/18 21:30 106/64 (78) 05/25/18 20:51 92 05/25/18 20:21 ??? 05/25/18 19:52 97.8 18 Nasal Cannula Impression: Primary Impression: Abdominal cramps Additional Impressions: Alcohol intoxication Chronic diarrhea Weight loss Condition: Improved Disposition: HOME OR SELF-CARE Referrals: LORI GARCIA MD (PCP) New Scripts Dicyclomine Hcl (DICYCLOMINE HCL) 20 Mg Tablet 20 MG PO QID PRN for abdominal cramps, #30 Prov: ADRIEN DAVID DO 05/25/18 Patient Instructions: Abdominal Pain (ED), Alcohol Intoxication (ED), Clear Liquid Diet (ED) Additional Instructions: Avoid alcohol until cleared by your doctor's Follow-up with your primary care doctor in 2-3 days Problem Qualifiers Additional Impressions: Alcohol intoxication Complication of substance-induced condition: uncomplicated Qualified Codes: F10.920 - Alcohol use, unspecified with intoxication, uncomplicated ADRIEN DAVID DO May 25, 2018 20:02
[2018-05-25 20:05] LABS: PLATELET COUNT, AUTOMATED 250 K/uL (150-450)
[2018-05-25 20:31] LABS: INR 0.93
[2018-05-25] MEDS ORDERED: DICYCLOMINE HCL 10 MG CAP PO ONE (20:35)
[2018-05-25] MEDS ORDERED: KETOROLAC 30 MG/ML VIAL IVP ONE (20:35)
[2018-05-25] MEDS ORDERED: ONDANSETRON 4 MG/2 ML VIAL IVP ONE (20:40)
[2018-05-25] MEDS ORDERED: DICY20TA70 PO (20:49)
[2018-05-25 21:30] VITALS: BP 106/64
== END 2018-05-25 21:49 | disposition home or self-care (01) ==
LOC: ER 19:59
DX: R10.30 Lower abdominal pain, unspecified (principal); K52.9 Noninfective gastroenteritis and colitis, unspecified; R63.4 Abnormal weight loss; Y90.8 Blood alcohol level of 240 mg/100 ml or more
CPT/HCPCS: 81001; 82150; 83605; 83690; 85025; 85610; 85730; 96365; 96375; 99284; A9270; G0480; J1885; J2405; J3411; J3475; J7030; 80320; 82040; 82247; 82310; 82374; 82435; 82565; 82947; 84075; 84132; 84155; 84295; 84450; 84460; 84520

== ENCOUNTER → 2018-05-25 | Outpatient (CLI) | payer MEDICARE ==
[~2018-05-25] MED LIST changes: -LIDOCAINE/SOD BICARB 8.4% SYR ID ONE; -NORMOSOL R SOLN(*) 1000 ML BAG 1,000 ML IV PRN
== END ==
LOC: AMB 19:23
PROVIDERS: ATTEND Nurse Practitioner
DX: R10.13 Epigastric pain (principal); R09.02 Hypoxemia; R45.1 Restlessness and agitation; Z72.89 Other problems related to lifestyle
CPT/HCPCS: A0425; A0427

== ENCOUNTER 2018-07-16 10:35 | Emergency (ER) | payer MEDICARE ==
--- NOTE | 2018-07-16 10:45 | ER Report ---
History and Physical Time Seen By MD: 10:44 Hx. of Stated Complaint: cabinet fell on thumb HPI/ROS CHIEF COMPLAINT: Right thumb pain HISTORY OF PRESENT ILLNESS: Patient states his represent patient a cabinet while she was cleaning her kitchen fell onto her right thumb just at the base of the nailbed patient will flex at both PIP and DIP patient has no additional complaints or injuries REVIEW OF SYSTEMS: Respiratory: No cough, no dyspnea. Cardiovascular: No chest pain, no palpitations. Gastrointestinal: No vomiting, no abdominal pain. Musculoskeletal: Right thumb pain Remainder of the 14 system rev: Yes Allergies: Coded Allergies: codeine (Verified Allergy, Mild, Itchy, 07/16/18) niacin (Verified Allergy, Mild, rash, itching, 07/16/18) tetracycline (Verified Allergy, Mild, yeast infection, 07/16/18) Home Meds Active Scripts Ipratropium/Albuterol Sulfate (IPRAT-ALBUT 0.5-3(2.5) MG/3 ML) 3 Ml Ampul.neb, 3 ML NEB QIDR for 30 Days, VIAL Prov:LUISA BAKER MD 08/08/16 Reported Medications Bupropion Hcl (WELLBUTRIN SR) 150 Mg Tablet.er, 150 MG PO QDAY, TAB 07/16/18 Oxygen (OXYGEN) Inha, 3.5 L INH Q24H, L 05/06/18 Dicyclomine Hcl (DICYCLOMINE HCL) 20 Mg Tablet, 20 MG PO TID 04/11/18 Pramipexole Di-Hcl (MIRAPEX) 0.125 Mg Tablet, 0.125 MG PO QHS 08/11/16 Budesonide/Formoterol Fumarate (SYMBICORT 160-4.5 MCG INHALER) 10.2 Gm Inh, 10.2 GM INH BID, INH 10/21/14 Discontinued Scripts Dicyclomine Hcl (DICYCLOMINE HCL) 20 Mg Tablet, 20 MG PO QID PRN for abdominal cramps, #30 Prov:ADRIEN DAVID DO 05/25/18 Reviewed Nurses Notes: Yes Old Medical Records Reviewed: Yes Hx Smoking: Yes (1 PPDX40+ YEARS ) Smoking Status: Current: Every Day Smoker Exposure to Second Hand Smoke?: No Hx Substance Use Disorder: No Hx Alcohol Use: Yes Constitutional Vital Sign - Last 24 Hours 07/16/18 10:40 Temp 97.3 Pulse 79 Resp 18 B/P (MAP) 133/71 Pulse Ox 91 O2 Delivery Room Air Physical Exam General appearance: Alert no distress. Respiratory: Chest is non tender, lungs are clear to auscultation. Cardiac: Regular rate and rhythm [ ] Right thumb examination of his thumb shows no obvious bruising contusion and ecchymosis no fracture of the skin noted. Flexion at both joints neurovascularly intact DIFFERENTIAL DIAGNOSIS: After history and physical exam differential diagnosis was considered for some contusion versus fracture Medical Decision Making ED Course/Re-evaluation ED Course ED course 60-year-old female who claimed a cabinet fell on her thumb x-rays are negative aquatic contusion to ice take ibuprofen or Tylenol for contusion Decision to Disposition Date: Jul 16, 2018 Decision to Disposition Time: 11:08 Depart Departure Latest Vital Signs Vital Signs Date Time Temp Pulse Resp B/P (MAP) Pulse Ox O2 Delivery O2 Flow Rate FiO2 07/16/18 10:40 97.3 79 18 133/71 91 Room Air Impression: Primary Impression: Contusion Condition: Improved Disposition: HOME OR SELF-CARE Referrals: LORI GARCIA MD (PCP) 10 Days Patient Instructions: Contusion in Adults (DC) PILAR POSADA MD Jul 16, 2018 10:45
[2018-07-16] MEDS ORDERED: BUPR-126 PO (10:47)
--- NOTE | 2018-07-16 11:06 | RADIOLOGY IMAGING REPORT ---
FACILITY: [facility] PATIENT NAME: Mary Perez : 1955 MR: [id number] V: [id number] EXAM DATE: ORDERING PHYSICIAN: PILAR POSADA TECHNOLOGIST: Location: [facility] Patient: Mary Perez : 1955 Visit/Account:[id number] Date of Sevice: 07/16/2018 FINGER RIGHT THUMB History: Right first digit pain. Comparison study: None. Findings: There is no finding of a fracture. There are findings of joint space narrowing with mild subchondral sclerosis involving the first MCP j oint and first CMC joint. These findings are suggestive of osteoarthrosis. IMPRESSION: 1. No findings of a fracture. 2. 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 Report Dictated By: Murali Doyle MD at 07/16/2018 11:01 AM Report E-Signed By: Murali Doyle MD at 07/16/2018 11:02 AM [email or web address]
[2018-07-16 11:21] VITALS: BP 119/64
== END 2018-07-16 11:19 | disposition home or self-care (01) ==
LOC: ER 10:52
DX: S60.011A Contusion of right thumb without damage to nail, initial encounter (principal)
CPT/HCPCS: 99283